=== PATIENT | female | born 1995 | race Caucasian/White ===

== ENCOUNTER 2023-08-22 11:54 | Emergency (ER) | payer OTHER, SELFPAY ==
--- NOTE | ~2023-08-22 | XR_ITS ---
EXAMINATION: XR chest 2V DATE: 08/22/2023 12:17 INDICATION: Chest pain. TECHNIQUE: Frontal and lateral views of the chest were obtained. COMPARISON: None. FINDINGS: There is no pneumonia, pleural effusion, or pneumothorax. The heart size is normal. IMPRESSION: 1. No acute cardiopulmonary disease. Reviewed, dictated and finalized at location A.
--- NOTE | 2023-08-22 11:56 | ECG_ITS ---
[facility] [address] Test Date: 2023-08-22 Pat Name: Honey Novak Department: Room: Gender: F [employer] Operator: : [id number] Requested By: Wilson Anders Order Number: [id number] Wilda MD: Poncho Steinberg M.D. Measurements Intervals [place] Rate: 83 P: 63 NC: 134 QRS: 92 QRSD: 78 T: -14 QT: 360 QTc: 423 Interpretive Statements BASELINE ARTIFACT, SUBOPTIMAL QUALITY ECG SINUS RHYTHM BORDERLINE RIGHT AXIS DEVIATION [QRS AXIS > 90] BORDERLINE ECG No previous ECG available for comparison Electronically Signed On 08-22-2023 14:55:35 CDT by Poncho Steinberg M.D.
[2023-08-22 12:04] VITALS: BP 116/81; PULSE 93; RESP 16; TEMP 36.9; O2SAT 100
[2023-08-22 12:26] LABS: Basophils Percent Auto 0.6 % (0.2-1.2); Eosinophils Absolute Auto 0.2 K/mm3 (0-0.3); Eosinophils Percent Auto 4.5 % (0-4.4); Hematocrit 35.8 % (37.0-47.0); Immature Granulocyte Absolute 0.01 K/mm3 (0.00-0.031); Immature Granulocyte Percent A 0.2 % (0-0.5); Lymphocytes Absolute Auto 2.33 K/mm3 (0.9-3.2); Lymphocytes Percent Auto 45.3 % (18.3-44.2); Mean Corpuscular HGB Conc 33.5 g/dl (32-36); Mean Corpuscular Hemoglobin 28.3 pg (26-34); Mean Corpuscular Volume 84.4 fl (80-100); Mean Platelet Volume 9.9 fl (7.4-10.4); Monocytes Absolute Auto 0.5 K/mm3 (0.1-0.6); Monocytes Percent Auto 9.3 % (2.6-8.5); Neutrophils Absolute Auto 2.1 K/mm3 (1.3-6.7); Neutrophils Percent Auto 40.1 % (45.5-73.1); Platelet Count Result 257 k/mm3 (150-375); Red Blood Count 4.24 M/mm3 (4.2-5.4); Red Cell Distribution Width 13.2 % (11.5-14.5); White Blood Count 5.1 K/mm3 (4.5-10.0)
[2023-08-22 12:38] LABS: INR 0.9; Partial Thromboplastin Time 26.3 Seconds (22.3-36.8); Prothrombin Time 12.7 Seconds (11.1-14.7)
[2023-08-22 12:38] LABS: Alanine Aminotransferase 14 U/L (6-35); Albumin Level 3.9 g/dL (3.5-5.1); Alkaline Phosphatase 43 U/L (38-126); Anion Gap -7 mmol/L (4-12); Aspartate Amino Transferase 21 U/L (14-36); Bilirubin,Total 0.7 mg/dL (0.2-1.3); Blood Urea Nitrogen 17 mg/dL (7-17); Calcium 9.2 mg/dL (8.4-10.2); Carbon Dioxide 32 mmol/L (22-30); Chloride 113 mmol/L (98-107); Estimated CRCL calculation 58 ml/min; Estimated Glomerular Filt Rate > 60; Glucose 79 mg/dL (65-110); Lipase 126 U/L (23-300); Potassium 3.8 mmol/L (3.4-5.0); Sodium 138 mmol/L (137-145)
[2023-08-22 12:49] LABS: Troponin I < 0.012 ng/mL (0.000-0.034)
[2023-08-22] MEDS: BELLADONNA ALK/PHENOB ELIX 10 ML, MAG HYDROX/ALUMINUM HYD/SIMETH 30 ML, LIDOCAINE HCL 2... PO (14:26)
[2023-08-22 14:28] VITALS: O2SAT 97
[2023-08-22 14:49] VITALS: BP 116/67; PULSE 89; RESP 12; O2SAT 99
--- NOTE | 2023-08-22 15:30 | ED.GENADULT ---
HPI - General Adult General Chief complaint: Chest Pain Stated complaint: cp Time Seen by Provider: 08/22/23 14:10 History of Present Illness HPI narrative: Patient is a 27-year-old female who presents ER with chest pain for last 3 days. Pressure that radiates into her right neck. Worse with eating and drinking as well as lying down flat. No fevers chills or sweats. Tried taking Pepcid without improvement. No exertional component. No pain with deep breath. No family history of cardiac disease at a young age. Related Data Home Medications Medication Instructions Recorded Confirmed norgestimate 0.25 mg-ethinyl 1 tablet PO DAILY 09/04/20 08/26/22 estradiol 35 mcg tablet (Amy) Allergies Allergy/AdvReac Type Severity Reaction Status Date / Time Sulfa (Sulfonamide AdvReac Severe Rash Verified 08/22/23 12:07 Antibiotics) Review of Systems Review of Systems: All systems reviewed & are unremarkable except as noted in HPI and below Constitutional: Constitutional: Reports no additional constitutional complaints ENT: Reports system reviewed and no additional complaints, except as documented Cardiovascular: Cardiovascular: Reports chest pain, Denies rapid heart rate and Denies radiating jaw, neck or arm pain Respiratory: Respiratory: Reports no additional respiratory complaints Gastrointestinal: Gastrointestinal: Denies abdominal pain, Reports heartburn, Denies diarrhea, Denies nausea and Denies vomiting PMFSH Past Medical History Medical History (Updated 08/22/23 @ 19:33 by Wilson Lima MD) ADHD (attention deficit hyperactivity disorder), inattentive type Anxiety GERD (gastroesophageal reflux disease) Family History Family History Father Hypertension Depression Mother Depression Sibling Hypertension Grandparent Diabetes mellitus Hypertension Depression Cerebrovascular accident Thyroid disorder Grandparent Hypertension Social History Social History Smoking status: Never smoker Alcohol intake: current Substance use: never Substance use type: does not use Exam Narrative: GENERAL: Well-appearing, well-nourished, and in no acute distress. HEAD: Normocephalic, atraumatic. ENT: Mucous membranes moist. NECK: Right-sided anterior cervical chain lymphadenopathy. CHEST: Clear to auscultation. No respiratory distress. HEART: Regular rate and rhythm. Normal peripheral pulses. ABDOMEN: Soft, nontender, nondistended. EXTREMITIES: Normal range of motion. No edema. SKIN: Warm, dry, no rash. NEURO: Alert and oriented x3. PSYCH: Normal mood and affect. Course Course Emergency Course: Symptoms improved with GI cocktail. Discussed labs and imaging results. Also normal EKG. Appropriate for discharge home. Vital Signs Vital signs: Vital Signs Temperature 98.5 F 08/22/23 12:04 Pulse Rate 93 08/22/23 12:04 Respiratory Rate 16 08/22/23 12:04 Blood Pressure 116/81 08/22/23 12:04 Pulse Oximetry 100 08/22/23 12:04 Oxygen Delivery Room Air 08/22/23 12:04 Temperature 98.5 F 08/22/23 12:04 Pulse Rate 89 08/22/23 14:49 Respiratory Rate 12 08/22/23 14:49 Blood Pressure 116/67 08/22/23 14:49 Pulse Oximetry 99 08/22/23 14:49 Oxygen Delivery Room Air 08/22/23 14:28 Medical Decision Making Vital Signs Vital Signs: Vital Signs Temperature 98.5 F 08/22/23 12:04 Pulse Rate 93 08/22/23 12:04 Respiratory Rate 16 08/22/23 12:04 Blood Pressure 116/81 08/22/23 12:04 Pulse Oximetry 100 08/22/23 12:04 Oxygen Delivery Room Air 08/22/23 12:04 Temperature 98.5 F 08/22/23 12:04 Pulse Rate 89 08/22/23 14:49 Respiratory Rate 12 08/22/23 14:49 Blood Pressure 116/67 08/22/23 14:49 Pulse Oximetry 99 08/22/23 14:49 Oxygen Delivery Room Air 08/22/23 14:28 Lab Data 0
[2023-08-22 16:06] LABS: Troponin I < 0.012 ng/mL (0.000-0.034)
== END 2023-08-22 15:36 | disposition home or self-care (01) ==
PROVIDERS: Emergency Provider Emergency Medicine; PCP Family Medicine Adolescent Medicine
DX: K21.9 Gastro-esophageal reflux disease without esophagitis (principal); F90.9 Attention-deficit hyperactivity disorder, unspecified type
CPT/HCPCS: 36415; 71046; 80053; 83690; 84484; 85025; 85610; 85730; 93005; 99284; A9270